=== PATIENT | female | born 1975 | race Two or more races ===

== ENCOUNTER 2022-05-30 07:09 | Day surgery (SDC) | payer OTHER ==
[~2022-05-30] VITALS: Ht 152.4 cm; Wt 63.5 kg
[~2022-05-30 07:09] MED LIST: COZAAR25 MG PO; CRESTOR5 MG PO; CYTOMEL5 MCG PO; SYNTHROID100 MCG PO
== END 2022-05-30 16:50 | disposition home or self-care (01) ==
LOC: CIR.AMB 07:09
PROVIDERS: ATTEND Colon & Rectal Surgery
DX: K64.4 Residual hemorrhoidal skin tags (principal); K64.8 Other hemorrhoids; K60.2 Anal fissure, unspecified; K62.9 Disease of anus and rectum, unspecified; K59.09 Other constipation; I10 Essential (primary) hypertension; Z20.822 Contact with and (suspected) exposure to COVID-19; Z87.891 Personal history of nicotine dependence

== ENCOUNTER 2023-01-18 07:22 | Emergency (ER) | payer OTHER ==
[~2023-01-18] VITALS: Ht 152.4 cm; Wt 60.3 kg
== END 2023-01-18 11:54 | disposition home or self-care (01) ==
LOC: ER 07:22
DX: R11.2 Nausea with vomiting, unspecified (principal); T50.995A Adverse effect of other drugs, medicaments and biological substances, initial encounter; I10 Essential (primary) hypertension; E03.9 Hypothyroidism, unspecified

== ENCOUNTER → 2023-01-20 | Emergency (ER) | payer OTHER ==
[~2023-01-20] VITALS: Ht 152.4 cm; Wt 59.9 kg
== END | disposition left against medical advice (07) ==
LOC: ER 22:18
DX: Z53.21 Procedure and treatment not carried out due to patient leaving prior to being seen by health care provider (principal)

== ENCOUNTER 2023-01-21 06:27 | Emergency (ER) | payer OTHER ==
[~2023-01-21] VITALS: Ht 152.4 cm; Wt 59.9 kg
== END 2023-01-21 10:05 | disposition home or self-care (01) ==
LOC: ER 06:27
DX: R10.13 Epigastric pain (principal); T50.905A Adverse effect of unspecified drugs, medicaments and biological substances, initial encounter; Y92.9 Unspecified place or not applicable; I10 Essential (primary) hypertension; E03.9 Hypothyroidism, unspecified

== ENCOUNTER 2023-09-29 20:53 | Emergency (ER) | payer OTHER ==
[~2023-09-29] VITALS: Ht 152.4 cm; Wt 62.6 kg
[2023-09-29] MEDS ORDERED: hydrALAZINE HCL 25 MG TABLET PO ONE (23:45)
[2023-09-30 00:12] LABS: HEMATOCRIT 38.1 % (36.0-45.00); MEAN CELL VOLUME 90.8 fL (80.00-100.00); MEAN CORPUSCULAR HEMOGLOBIN 30.9 pg (27.00-32.0); MEAN CORPUSCULAR HGB CONC 34.1 g/dl (32.0-36.0); PLATELET COUNT 280 K/uL (150-450); RED CELL DISTRIBUTION WIDTH 14.5 % (11.5-14.5)
[2023-09-30 00:24] LABS: CREATININE SERUM 0.59 mg/dL (0.55-1.02); GFR 108.33; POTASSIUM 3.97 mEq/L (3.5-5.1)
== END 2023-09-30 03:46 | disposition left against medical advice (07) ==
LOC: ER 20:54
PROVIDERS: General Practice
DX: I10 Essential (primary) hypertension (principal)